=== PATIENT | female | born 1970 | race Asian ===

== ENCOUNTER → 2018-11-23 | Outpatient (CLI) | payer MEDICAID ==
[~2018-11-23] MED LIST: ZITHROMAX Z PA250 MG PO
== END ==
LOC: MC.RAD 11-21 11:45
DX: Z12.31 Encounter for screening mammogram for malignant neoplasm of breast (principal); N63.10 Unspecified lump in the right breast, unspecified quadrant

== ENCOUNTER → 2018-11-27 | Outpatient (CLI) | payer MEDICAID | LOC: MC.RAD 07:08 | DX: N63.11 Unspecified lump in the right breast, upper outer quadrant (principal); Z98.82 Breast implant status ==

== ENCOUNTER 2020-06-20 14:00 | Outpatient (RCR) | payer BC ==
[2020-06-10 16:17] VITALS: BP 129/85; PULSE 86; TEMP 98.9
[2020-06-13 16:14] VITALS: BP 101/55; PULSE 92; TEMP 98.7
[2020-06-17 17:55] VITALS: BP 111/71; PULSE 82; TEMP 98.6
[~2020-06-20] VITALS: Ht 165.1 cm; Wt 89.5 kg
[~2020-06-20 14:00] MED LIST changes: +MASON NATURAL2000 IU PO; +SYNTHROID0.137 MG PO
[2020-06-20 14:28] VITALS: BP 111/71; PULSE 81; TEMP 98.3
--- NOTE | 2020-06-20 15:54 | NUR ---
Pt tolerates final infusion without issue. IV DC'd with catheter intact. Pt ambulates from dept with steady gait and personal belongings.
== END 2020-06-20 16:54 | disposition still patient (30) ==
LOC: EUO 14:00
DX: D50.9 Iron deficiency anemia, unspecified (principal)
CPT/HCPCS: J2916

== ENCOUNTER → 2020-07-16 | Outpatient (CLI) | payer BC | LOC: MC.RAD 10:05 | DX: Z12.31 Encounter for screening mammogram for malignant neoplasm of breast (principal); Z98.82 Breast implant status ==

== ENCOUNTER → 2021-12-07 | Outpatient (CLI) | payer OTHER | LOC: MC.RAD 09-04 10:30 | DX: Z12.31 Encounter for screening mammogram for malignant neoplasm of breast (principal) ==